=== PATIENT | female | born 1960 | race Caucasian/White ===

== ENCOUNTER 2023-11-25 00:05 | Emergency (ER) | payer BC, MEDICARE ==
[2023-11-25 00:45] VITALS: TEMP 97.7
[2023-11-25] MEDS: ONDANSETRON 4 MG/2 ML VIAL IVP STA (01:01)
[2023-11-25] MEDS: HYDROmorphone 1 MG/ML 1 ML SYRINGE IVP STA (01:02)
[2023-11-25] MEDS: SODIUM CHLORIDE 0.9% 1,000 ML IV STA ×2 (01:03→05:58)
[2023-11-25 01:12] LABS: Basophils # (A) 0.1 k/uL (0-0.2); Basophils % (A) 0 %; Eosinophils # (A) 0.1 k/uL (0-0.7); Eosinophils % (A) 1 %; HCT 41.4 % (34.0-46.0); HGB 13.3 gm/dL (11.4-16.0); Lymphocytes # (A) 2.7 k/uL (1.0-4.8); Lymphocytes % (A) 18 %; MCH 30.1 pg (25.0-35.0); MCHC 32.2 g/dL (31.0-37.0); MCV 93.5 fL (80.0-100.0); Mean Platelet Volume 8.1; Monocytes # (A) 0.6 k/uL (0-1.0); Monocytes % (A) 4 %; Neutrophils # (A) 11.4 k/uL (1.3-7.7); Neutrophils % (A) 76 %; Platelet Count 204 k/uL (150-450); RBC 4.42 m/uL (3.80-5.40); RDW 12.7 % (11.5-15.5); WBC 15.1 k/uL (3.8-10.6)
[2023-11-25 01:24] LABS: ALT 15 U/L (4-34); AST 17 U/L (14-36); African American GFR (CKD) 69 (>60 ml/min/1.73 sqM); Albumin 4.5 g/dL (3.5-5.0); Alkaline Phosphatase 114 U/L (38-126); Amylase 71 U/L (30-110); Anion Gap 14 mmol/L; Blood Urea Nitrogen 27 mg/dL (7-17); Calcium 9.8 mg/dL (8.4-10.2); Carbon Dioxide 17 mmol/L (22-30); Chloride 102 mmol/L (98-107); Glucose 313 mg/dL (74-99); Lipase 135 U/L (23-300); Non-African American GFR(CKD) 60 (>60 ml/min/1.73 sqM); Potassium 3.7 mmol/L (3.5-5.1); Sodium 133 mmol/L (137-145); Total Bilirubin 0.6 mg/dL (0.2-1.3); Total Protein 7.4 g/dL (6.3-8.2)
[2023-11-25 03:59] LABS: Appearance,Urine Clear (Clear); Bacteria,Urine Many /hpf; Bilirubin,Urine Negative (Negative); Blood,Urine Moderate (Negative); Color,Urine Colorless; Glucose,Urine (UA) 4+ (Negative); Hyaline Casts,Urine 17 /lpf (0-2); Ketones,Urine 1+ (Negative); Leukocyte Esterase,Urine Moderate (Negative); Mucus,Urine Rare /hpf; Nitrite,Urine Negative (Negative); Protein,Urine 1+ (Negative); RBC,Urine 121 /hpf (0-5); Specific Gravity,Urine 1.031 (1.001-1.035); Squamous Epithelial Cell,Urine <1 /hpf (0-4); Urobilinogen,Urine <2.0 mg/dL (<2.0); WBC,Urine 97 /hpf (0-5)
--- NOTE | 2023-11-25 04:40 | ED ---
Abdominal Pain HPI - General Source: patient Mode of arrival: ambulatory Limitations: no limitations <Nidia Moss - Last Filed: 11/25/23 19:54> - General Source: RN notes reviewed, old records reviewed Mode of arrival: ambulatory Limitations: no limitations - History of Present Illness MD Complaint: abdominal pain <Mati Castano - Last Filed: 12/05/23 08:24> - General Chief Complaint: Abdominal Pain Stated Complaint: Appendix pain Time Seen by Provider: 11/25/23 00:21 - History of Present Illness Initial Comments: 63-year-old female presenting with chief complaint of abdominal pain. Patient had sudden onset sharp right lower quadrant pain this evening around 2200. She admits to nausea and vomiting. Surgical history includes hernia repair and C- section. She is experiencing no flank pain, dysuria, hematuria. No fevers or chills. No chest pain or difficulty breathing. No URI-like symptoms. No hematochezia, melena, hematemesis. (Nidia Moss) 63 female to ER for evaluation of abdominal pain today with nausea and vomiting (Mati Castano) - Related Data Previous Rx's Medication Instructions Recorded Amoxic-Pot Clav 875-125Mg 1 tab PO Q12HR #20 tablet 11/25/23 [Augmentin 875-125] Allergies Allergy/AdvReac Type Severity Reaction Status Date / Time venom-honey bee Allergy Anaphylaxis Verified 11/25/23 00:17 [bee venom (honey bee)] shrimp Allergy Rash/Hives Uncoded 07/17/14 08:37 Review of Systems ROS Other: All systems not noted in ROS Statement are negative. <Nidia Moss - Last Filed: 11/25/23 19:54> ROS Other: All systems not noted in ROS Statement are negative. <Mati Castano - Last Filed: 12/05/23 08:24> ROS Statement: Those systems with pertinent positive or pertinent negative responses have been documented in the HPI. Past Medical History Past Medical History: Dialysis, Hearing Disorder / Deafness, Hyperlipidemia History of Any Multi-Drug Resistant Organisms: None Reported Past Surgical History: Section, Hernia Repair Additional Past Surgical History / Comment(s): HAMMERTOE X 2 LT FOOT. BUNIONECTOMY LT FOOT. COLONOSCOPY Past Anesthesia/Blood Transfusion Reactions: No Reported Reaction Past Alcohol Use History: Occasional Past Drug Use History: None Reported - Past Family History Father Family Medical History: Cancer <IsaNichosebastian - Last Filed: 11/25/23 19:54> General Exam Limitations: no limitations General appearance: alert, in distress (in pain) Head exam: Present: atraumatic, normocephalic Eye exam: Present: normal appearance, EOMI Neck exam: Present: normal inspection. Absent: meningismus Respiratory exam: Present: normal lung sounds bilaterally. Absent: respiratory distress, wheezes, rales, rhonchi, stridor Cardiovascular Exam: Present: regular rate, normal rhythm, normal heart sounds. Absent: systolic murmur, diastolic murmur, rubs, gallop, clicks GI/Abdominal exam: Present: soft, tenderness. Absent: distended, guarding, rebound, rigid Neurological exam: Present: alert, oriented X3 Psychiatric exam: Present: normal affect, normal mood Skin exam: Present: warm, dry <Nidia Moss - Last Filed: 11/25/23 19:54> General appearance: alert, in no apparent distress Head exam: Present: atraumatic, normocephalic, normal inspection Eye exam: Present: normal appearance, PERRL, EOMI. Absent: scleral icterus, conjunctival injection, periorbital swelling ENT exam: Present: normal exam, mucous membranes moist Neck exam: Present: normal inspection. Absent: tenderness, meningismus, lym phadenopathy Respiratory exam: Present: normal lung sounds bilaterally. Absent: respiratory distress, wheezes, rales, rhonchi, stridor Cardiovascular Exam: Present: regular rate, normal rhythm, normal heart sounds. Absent: systolic murmur, diastolic murmur, rubs, gallop, clicks GI/Abdominal exam: Present: soft, normal bowel sounds. Absent: distended, tenderness, guarding, rebound, rigid Extremities exam: Present: normal inspection, full ROM, normal capillary refill. Absent: tenderness, pedal edema, joint swelling, calf tenderness Back exam: Present: normal inspection Neurological exam: Present: alert, oriented X3, CN II-XII intact Psychiatric exam: Present: normal affect, normal mood Skin exam: Present: warm, dry, intact, normal color. Absent: rash <Mati Castano - Last Filed: 12/05/23 08:24> Course <Mati Castano - Last Filed: 12/05/23 08:24> Vital Signs 11/25/23 11/25/23 11/25/23 00:14 00:29 01:29 Temperature 97.7 F Pulse Rate 88 79 Respiratory 18 16 Rate Blood Pressure 139/106 211/90 158/69 O2 Sat by Pulse 98 99 Oximetry 11/25/23 11/25/23 11/25/23 03:05 03:50 04:46 Temperature Pulse Rate 74 84 89 Respiratory 16 16 18 Rate Blood Pressure 130/72 145/67 128/62 O2 Sat by Pulse 97 97 96 Oximetry 11/25/23 11/25/23 11/25/23 05:00 06:00 06:43 Temperature Pulse Rate 80 78 84 Respiratory 16 18 16 Rate Blood Pressure 128/62 135/80 136/85 O2 Sat by Pulse 98 97 100 Oximetry - Reevaluation(s) Reevaluation #1: Medical records reviewed (Mati Castano) Reevaluation #2: Patient symptoms are improved (Mati Castano) Reevaluation #3: Patient informed of results questions answered (Mati Castano) Medical Decision Making - Lab Data Result diagrams: 11/25/23 00:59 11/25/23 00:59 <Nidia Moss - Last Filed: 11/25/23 19:54> - Lab Data Result diagrams: 11/25/23 00:59 11/25/23 00:59 - Radiology Data Radiology results: report reviewed (CT abdomen pelvis for acute disease), image reviewed <Mati Castano - Last Filed: 12/05/23 08:24> - Medical Decision Making Was pt. sent in by a medical professional or institution (, PA, BARBER OR BEAUTY SHOP MANAGER, urgent care, hospital, or care home...) When possible be specific @ -[No] Did you speak to anyone other than the patient for history (EMS, parent, family, police, friend...)? What history was obtained from this source @ -[No] Did you review nursing and triage notes (agree or disagree)? Why? @ -[I reviewed and agree with nursing and triage notes] Were old charts reviewed (outside hosp., previous admission, EMS record, old EKG, old radiological studies, urgent care reports/EKG's, care home records)? Report findings @ -[No old charts were reviewed] Differential Diagnosis (chest pain, altered mental status, abdominal pain women, abdominal pain men, vaginal bleeding, weakness, fever, dyspnea, syncope, headache, dizziness, GI bleed, back pain, seizure, CVA, palpatations, mental health, musculoskeletal)? @ -MDM Differential Abdominal Pain Women: Appendicitis, Cholecystitis, diverticulosis, ischemic bowel, pancreatitis, hepatitis, UTI, gastroenteritis, AAA, incarcerated hernia, bowel obstruction, constipation, inflammatory bowel, hepatitis, peptic ulcer disease, splenic infarction, perforated viscus, vulvitis, ovarian torsion, PID, kidney stone, placenta abruption... This is not meant to be an all-inclusive list EKG interpreted by me (3pts min.). @ -[As above] X-rays interpreted by me (1pt min.). @ -[None done] CT interpreted by me (1pt min.). @ -CT abdomen and pelvis is obtained, report is pending U/S interpreted by me (1pt. min.). @ -[None done] What testing was considered but not performed or refused? (CT, X-rays, U/S, labs)? Why? @ -[None] What meds were considered but not given or refused? Why? @ -[None] Did you discuss the management of the patient with other professionals (professionals i.e. , PA, BARBER OR BEAUTY SHOP MANAGER, lab, RT, psych nurse, director of social services, bioinformatician, teacher, control officer manager, porter sample case)? Give summary @ -[No] Was smoking cessation discussed for >3mins.? @ -[No] Was critical care preformed (if so, how long)? @ -[No] Were there social determinants of health that impacted care today? How? (Homelessness, low income, unemployed, alcoholism, drug addiction, transportation, low edu. Level, literacy, decrease access to med. care, intermediate, rehab)? @ -[No] Was there de-escalation of care discussed even if they declined (Discuss DNR or withdrawal of care, Hospice)? DNR status @ -[No] What co-morbidities impacted this encounter? (DM, HTN, Smoking, COPD, CAD, Cancer, CVA, ARF, Chemo, Hep., AIDS, mental health diagnosis, sleep apnea, morbid obesity)? @ -[None] Was patient admitted / discharged? Hospital course, mention meds given and route, prescriptions, significant lab abnormalities, going to OR and other p ertinent info. @ -63-year-old female presenting with chief complaint of right lower quadrant pain. History and physical exam are conducted. There are 2 lab work shows WBC 15.1. Glucose 314, patient is a type II diabetic states that she tries to manage her diabetes primarily by diet and will not take medication because it makes her sick. BUN 27 sodium 133, patient is receiving IV fluids. Urine shows evidence of infection with moderate blood and leukocytes. Patient treated with Rocephin. CT abdomen pelvis is obtained, report is pending. Patient is signed out to my attending Dr. Castano for further management and disposition Undiagnosed new problem with uncertain prognosis? @ -[No] Drug Therapy requiring intensive monitoring for toxicity (Heparin, Nitro, Insulin, Cardizem)? @ -[No] Were any procedures done? @ -[No] Diagnosis/symptom? @ -[default] Acute, or Chronic, or Acute on Chronic? @ -[default] Uncomplicated (without systemic symptoms) or Complicated (systemic symptoms)? @ -[default] Side effects of treatment? @ -[No] Exacerbation, Progression, or Severe Exacerbation? @ -[No] Poses a threat to life or bodily function? How? (Chest pain, [place], [place], pneumonia, PE, COPD, DKA, ARF, appy, cholecystitis, CVA, Diverticulitis, Homicidal, Suicidal, threat to staff... and all critical care pts) @ -[No] (Nidia Moss) 63 female for nonspecific abdominal pain. Patient has normal CT scan findings here in the ER concerning for possible pyelonephritis, patient will be placed on antibiotics and can be discharged (Mati Castano) - Lab Data Lab Results 11/25/23 11/25/23 11/25/23 Range/Units 00:59 00:59 00:59 WBC 15.1 H (3.8-10.6) k/uL RBC 4.42 (3.80-5.40) m/uL Hgb 13.3 (11.4-16.0) gm/dL Hct 41.4 (34.0-46.0) % MCV 93.5 (80.0-100.0) fL MCH 30.1 (25.0-35.0) pg MCHC 32.2 (31.0-37.0) g/dL RDW 12.7 (11.5-15.5) % Plt Count 204 (150-450) k/uL MPV 8.1 Neutrophils % 76 % Lymphocytes % 18 % Monocytes % 4 % Eosinophils % 1 % Basophils % 0 % Neutrophils # 11.4 H (1.3-7.7) k/uL Lymphocytes # 2.7 (1.0-4.8) k/uL Monocytes # 0.6 (0-1.0) k/uL Eosinophils # 0.1 (0-0.7) k/uL Basophils # 0.1 (0-0.2) k/uL Sodium 133 L (137-145) mmol/L Potassium 3.7 (3.5-5.1) mmol/L Chloride 102 (98-107) mmol/L Carbon Dioxide 17 L (22-30) mmol/L Anion Gap 14 mmol/L BUN 27 H (7-17) mg/dL Creatinine 0.99 (0.52-1.04) mg/dL Est GFR (CKD-EPI)AfAm 69 (>60 ml/min/1.73 sqM) Est GFR (CKD-EPI)NonAf 60 (>60 ml/min/1.73 sqM) Glucose 313 H (74-99) mg/dL Plasma Lactic Acid Ruiz 2.0 (0.7-2.0) mmol/L Calcium 9.8 (8.4-10.2) mg/dL Total Bilirubin 0.6 (0.2-1.3) mg/dL AST 17 (14-36) U/L ALT 15 (4-34) U/L Alkaline Phosphatase 114 (38-126) U/L Total Protein 7.4 (6.3-8.2) g/dL Albumin 4.5 (3.5-5.0) g/dL Amylase 71 (30-110) U/L Lipase 135 (23-300) U/L Urine Color Urine Appearance (Clear) Urine pH (5.0-8.0) Ur Specific [place] (1.001-1.035) Urine Protein (Negative) Urine Glucose (UA) (Negative) Urine Ketones (Negative) Urine Blood (Negative) Urine Nitrite (Negative) Urine Bilirubin (Negative) Urine Urobilinogen (<2.0) mg/dL Ur Leukocyte Esterase (Negative) Urine RBC (0-5) /hpf Urine WBC (0-5) /hpf Ur Squamous Epith Cells (0-4) /hpf Urine Bacteria (None) /hpf Hyaline Casts (0-2) /lpf Urine Mucus (None) /hpf 11/25/23 Range/Units 03:39 WBC (3.8-10.6) k/uL RBC (3.80-5.40) m/uL Hgb (11.4-16.0) gm/dL Hct (34.0-46.0) % MCV (80.0-100.0) fL MCH (25.0-35.0) pg MCHC (31.0-37.0) g/dL RDW (11.5-15.5) % Plt Count (150-450) k/uL MPV Neutrophils % % Lymphocytes % % Monocytes % % Eosinophils % % Basophils % % Neutrophils # (1.3-7.7) k/uL Lymphocytes # (1.0-4.8) k/uL Monocytes # (0-1.0) k/uL Eosinophils # (0-0.7) k/uL Basophils # (0-0.2) k/uL Sodium (137-145) mmol/L Potassium (3.5-5.1) mmol/L Chloride (98-107) mmol/L Carbon Dioxide (22-30) mmol/L Anion Gap mmol/L BUN (7-17) mg/dL Creatinine (0.52-1.04) mg/dL Est GFR (CKD-EPI)AfAm (>60 ml/min/1.73 sqM) Est GFR (CKD-EPI)NonAf (>60 ml/min/1.73 sqM) Glucose (74-99) mg/dL Plasma Lactic Acid Ruiz (0.7-2.0) mmol/L Calcium (8.4-10.2) mg/dL Total Bilirubin (0.2-1.3) mg/dL AST (14-36) U/L ALT (4-34) U/L Alkaline Phosphatase (38-126) U/L Total Protein (6.3-8.2) g/dL Albumin (3.5-5.0) g/dL Amylase (30-110) U/L Lipase (23-300) U/L Urine Color Colorless Urine Appearance Clear (Clear) Urine pH 6.0 (5.0-8.0) Ur Specific [place] 1.031 (1.001-1.035) Urine Protein 1+ H (Negative) Urine Glucose (UA) 4+ H (Negative) Urine Ketones 1+ H (Negative) Urine Blood Moderate H (Negative) Urine Nitrite Negative (Negative) Urine Bilirubin Negative (Negative) Urine Urobilinogen <2.0 (<2.0) mg/dL Ur Leukocyte Esterase Moderate H (Negative) Urine RBC 121 H (0-5) /hpf Urine WBC 97 H (0-5) /hpf Ur Squamous Epith Cells <1 (0-4) /hpf Urine Bacteria Many H (None) /hpf Hyaline Casts 17 H (0-2) /lpf Urine Mucus Rare H (None) /hpf Disposition <Nidia Moss - Last Filed: 11/25/23 19:54> Is patient prescribed a controlled substance at d/c from ED?: No Time of Disposition: 06:00 <Mati Castano - Last Filed: 12/05/23 08:24> Clinical Impression: Pyelonephritis Disposition: HOME SELF-CARE Condition: Good Instructions (If sedation given, give patient instructions): Kidney Infection (ED) Prescriptions: Amoxic-Pot Clav 875-125Mg [Augmentin 875-125] 1 tab PO Q12HR #20 tablet Referrals: Brenda Gomez MD [Primary Care Provider] - 1-2 days
[2023-11-25] MEDS: SODIUM CHLORIDE 0.9% 500 ML 500 ML IV STA (05:02)
[2023-11-25] MEDS: KETOROLAC 15 MG/ML 1 ML VIAL IVP STA (05:04)
--- NOTE | 2023-11-25 05:31 | CT ---
EXAM: CT Abdomen and Pelvis With Intravenous Contrast CLINICAL HISTORY: ITS.REASON CT Reason: RLQ abdominal pain TECHNIQUE: Axial computed tomography images of the abdomen and pelvis with intravenous contrast. CTDI is 16.3 mGy and DLP is 758.6 mGy-cm. This CT exam was performed using one or more of the following dose reduction techniques: automated exposure control, adjustment of the mA and/or kV according to patient size, and/or use of iterative reconstruction technique. COMPARISON: No relevant prior studies available. FINDINGS: Lung bases: Unremarkable. No mass. No consolidation. ABDOMEN: Liver: Low attenuation foci in the liver some of which are due to cysts. Others are too small to characterize. Gallbladder and bile ducts: Cholelithiasis. No gross findings to suggest cholecystitis. No ductal dilation. Pancreas: Unremarkable. No mass. No ductal dilation. Spleen: Unremarkable. No splenomegaly. Adrenals: Unremarkable. No mass. Kidneys and ureters: Right perinephric and right periureteral stranding with right ureteral enhancement. Findings are favored to relate to sequela of ascending urinary tract infection. Minimal hypodensity is noted within the superior right kidney with mild obscuration of cortical medullary differentiation. Findings may relate to pyelonephritis. Multiple low attenuation lesions in the kidneys some of which appear to be due to simple renal cysts while others are too small to characterize. No follow-up is necessary. No hydronephrosis. Stomach and bowel: Unremarkable. No obstruction. No mucosal thickening. PELVIS: Appendix: No findings to suggest acute appendicitis. Bladder: Mild bladder wall thickening with adjacent stranding. Findings can be seen with cystitis. Consider correlation with laboratory values. Reproductive: Masslike appearance within the uterus. Consider ultrasound for further characterization. ABDOMEN and PELVIS: Intraperitoneal space: Unremarkable. No free air. No significant fluid collection. Bones/joints: Degenerative changes in the spine. No acute fracture. No dislocation. Soft tissues: Umbilical hernia containing fat. Vasculature: Atherosclerotic disease. No abdominal aortic aneurysm. Lymph nodes: Unremarkable. No enlarged lymph nodes. IMPRESSION: 1. Mild bladder wall thickening with adjacent stranding. Findings can be seen with cystitis. Consider correlation with laboratory values. 2. Right perinephric and right periureteral stranding with right ureteral enhancement. Findings are favored to relate to sequela of ascending urinary tract infection. Minimal hypodensity is noted within the superior right kidney with mild obscuration of cortical medullary differentiation. Findings may relate to pyelonephritis. 3. Masslike appearance within the uterus. Consider ultrasound for further characterization. <MYCVCSECTION> Communications: 11/25/23 05:46 Verify Receipt Verified receipt with RN for Dr. Castano on 11/24 05:46 (-04:00)
[2023-11-25] MEDS: ACET/COD 300 MG/30 MG STARTER PACK 6 TAB BTL PO STA (06:33)
[2023-11-25] MEDS: AMOXIC-POT CLAV 875MG STARTER PACK 2 TAB BTL PO STA (06:34)
[2023-11-25] MEDS: AMOXIC-POT CLAV 875-125MG 1 EACH TAB PO STA (06:39)
[2023-11-25] MEDS: ONDANSETRON 4 MG ODT STARTER PACK 2 TAB BTL PO STA (06:39)
[2023-11-25 06:56] VITALS: BP 136/85; PULSE 84; RESP 16
== END 2023-11-25 06:42 | disposition home or self-care (01) ==
LOC: EC 00:05
DX: N12 Tubulo-interstitial nephritis, not specified as acute or chronic (principal); Z91.030 Bee allergy status
CPT/HCPCS: 36415; 80053; 82150; 83605; 83690; 85025; 81001; 74177; 99284; 96365; 96375 ×3; 96361 ×2; J2405; J0696; J1170; J1885; S0119; Q9967